=== PATIENT | female | born 1995 | race Two or more races ===

== ENCOUNTER 2021-09-27 19:21 | Emergency (ER) | payer OTHER ==
[~2021-09-27] VITALS: Ht 160 cm; Wt 117.9 kg
--- NOTE | 2021-09-27 19:51 | NUR ---
BIBSELF C/O SOB AND CP X1 WEEK. +FEVER. DAD TESTED + FOR COVID. PATIENT ALERT AND OREINTED X3. AMBULATORY WITH NON LABORED BREATHING PLACED IN BED 07 ON MONITOR AND POX.
--- NOTE | 2021-09-27 20:07 | NUR ---
COVID SWAB DONE AND SENT TO LAB
[2021-09-27] MEDS ORDERED: GUAI10LI12 PO (20:56)
--- NOTE | 2021-09-27 21:10 | NUR ---
Patient discharged to home in stable condition. Written and verbal after care instructions given. Patient verbalizes understanding of instruction.
[2021-09-27 21:41] VITALS: BP 143/81
== END 2021-09-27 21:42 | disposition home or self-care (01) ==
LOC: ER 19:23
DX: U07.1 COVID-19 (principal)
CPT/HCPCS: 71045; 87426; 93005; 99285; C9803